=== PATIENT | female | born 1955 | race Caucasian/White ===

== ENCOUNTER 2018-05-28 07:31 | Day surgery (SDC) | payer OTHER ==
[~2018-05-28] VITALS: Ht 152.4 cm; Wt 90.9 kg
[~2018-05-28 07:31] MED LIST: Flonase 0.05% N16 GM; IBUP800 PO; LEVSOD88; Norco 7.5-3251 EACH PO; Omeprazole20 M1 PO; RANI150 PO; RXIBUP800 PO; VENL37.5ER PO
[2018-05-28] MEDS ORDERED: CYAN500 (08:06)
== END 2018-05-28 10:07 | disposition home or self-care (01) ==
LOC: ORSCSDS 07:31
PROVIDERS: Internal Medicine Gastroenterology
PROC: 0DBL8ZX Excision of Transverse Colon, Via Natural or Artificial Opening Endoscopic, Diagnostic (ICD-10-PCS; principal; 2018-05-28 08:45)
PROC: 0DBP8ZX Excision of Rectum, Via Natural or Artificial Opening Endoscopic, Diagnostic (ICD-10-PCS; principal; 2018-05-28 08:45)
PROC: 0DBN8ZX Excision of Sigmoid Colon, Via Natural or Artificial Opening Endoscopic, Diagnostic (ICD-10-PCS; principal; 2018-05-28 08:45)
DX: Z86.010 Personal history of colon polyps (principal); D12.3 Benign neoplasm of transverse colon; K63.5 Polyp of colon; K62.1 Rectal polyp; K57.30 Diverticulosis of large intestine without perforation or abscess without bleeding; K64.8 Other hemorrhoids; G47.33 Obstructive sleep apnea (adult) (pediatric); E03.9 Hypothyroidism, unspecified; Z87.891 Personal history of nicotine dependence
CPT/HCPCS: 88305; J7120

== ENCOUNTER 2019-05-24 04:18 | Emergency (ER) | payer OTHER ==
[~2019-05-24] VITALS: Ht 154.9 cm; Wt 80.7 kg
[~2019-05-24 04:18] MED LIST changes: +CYAN500
[2019-05-24] MEDS ORDERED: NORCO (04:36)
[2019-05-24] MEDS ORDERED: CEPH500 PO (04:48)
[2019-05-24] MEDS ORDERED: BENADRYL25 MG PO (04:48)
[2019-05-24] MEDS ORDERED: Bactrim Ds Tab1 EACH PO (04:48)
== END 2019-05-24 05:03 | disposition home or self-care (01) ==
LOC: ER 04:18
DX: S00.461A Insect bite (nonvenomous) of right ear, initial encounter (principal); H60.11 Cellulitis of right external ear; W57.XXXA Bitten or stung by nonvenomous insect and other nonvenomous arthropods, initial encounter; Z79.899 Other long term (current) drug therapy; Z87.891 Personal history of nicotine dependence
CPT/HCPCS: 99282; Q0163

== ENCOUNTER → 2019-11-10 | Outpatient (CLI) | payer OTHER ==
[~2019-11-10] MED LIST changes: +BENADRYL25 MG PO; +Bactrim Ds Tab1 EACH PO; +CEPH500 PO; +NORCO
[2019-11-10 18:22] LABS: U Amphetamine Screen Not Detected; U Barbituate Screen Not Detected; U Benzodiazapine Screen Not Detected; U Buprenorphine Screen Not Detected; U Cannabinoids Screen Not Detected; U Cocaine Screen Not Detected; U Methadone Screen Not Detected; U Methamphetamine Screen Not Detected; U Opiates Screen DETECTED; U Oxycodone Screen Not Detected; U Phencyclidine Screen Not Detected; U Propoxyphene Screen Not Detected
== END | disposition home or self-care (01) ==
LOC: LAB SHORT 15:01 → LAB 15:01
PROVIDERS: Internal Medicine
DX: Z51.81 Encounter for therapeutic drug level monitoring (principal); Z79.891 Long term (current) use of opiate analgesic
CPT/HCPCS: G0480

== ENCOUNTER 2020-12-04 07:47 | Day surgery (SDC) | payer BC ==
[~2020-12-04] VITALS: Ht 152.4 cm; Wt 71.0 kg
== END 2020-12-04 09:44 | disposition home or self-care (01) ==
LOC: ORSCSDS 07:47
PROVIDERS: Internal Medicine Gastroenterology
PROC: 0DB58ZX Excision of Esophagus, Via Natural or Artificial Opening Endoscopic, Diagnostic (ICD-10-PCS; principal; 2020-12-04 09:00)
DX: K22.70 Barrett's esophagus without dysplasia (principal); K21.9 Gastro-esophageal reflux disease without esophagitis; G47.30 Sleep apnea, unspecified; K76.0 Fatty (change of) liver, not elsewhere classified; Z79.899 Other long term (current) drug therapy
CPT/HCPCS: 88305; J2704; J7120

== ENCOUNTER 2022-03-11 06:29 | Day surgery (SDC) | payer MEDICARE ==
[~2022-03-11] VITALS: Ht 152.4 cm; Wt 75.5 kg
== END 2022-03-11 08:10 | disposition home or self-care (01) ==
LOC: ORSCSDS 06:29
PROVIDERS: Orthopaedic Surgery
PROC: 01N50ZZ Release Median Nerve, Open Approach (ICD-10-PCS; principal; 2022-03-11 07:30)
DX: G56.03 Carpal tunnel syndrome, bilateral upper limbs (principal); G47.33 Obstructive sleep apnea (adult) (pediatric); E66.9 Obesity, unspecified; Z68.32 Body mass index [BMI] 32.0-32.9, adult; Z87.891 Personal history of nicotine dependence; Z79.899 Other long term (current) drug therapy
CPT/HCPCS: J2250; J2704; J3010

== ENCOUNTER → 2023-08-07 | Outpatient (CLI) | payer MEDICARE ==
[2023-08-07 11:05] LABS: U Amphetamine Screen Not Detected; U Barbituate Screen Not Detected; U Benzodiazapine Screen Not Detected; U Buprenorphine Screen Not Detected; U Cannabinoids Screen Not Detected; U Cocaine Screen Not Detected; U Methadone Screen Not Detected; U Methamphetamine Screen Not Detected; U Opiates Screen DETECTED; U Oxycodone Screen Not Detected; U Phencyclidine Screen Not Detected; U Propoxyphene Screen Not Detected
== END | disposition home or self-care (01) ==
LOC: LAB SHORT 08:20 → LAB 08:20
PROVIDERS: Internal Medicine
DX: Z51.81 Encounter for therapeutic drug level monitoring (principal); Z79.891 Long term (current) use of opiate analgesic
CPT/HCPCS: G0480

== ENCOUNTER 2024-07-22 09:58 | Day surgery (SDC) | payer OTHER ==
[~2024-07-22] VITALS: Ht 152.4 cm; Wt 86.8 kg
[~2024-07-22 09:58] MED LIST changes: +FARXIGA5 MG PO; +FURO20 PO; +Lactated Ringer's 1,000 ML IV SCH; +NEBI10 PO
[2024-07-22 10:25] VITALS: BP 144/91
--- NOTE | 2024-07-22 10:43 | NUR ---
07/22/24 1043 Jennifer Samuel History, Chart, Medications and Allergies reviewed before start of procedure.
[2024-07-22] MEDS ORDERED: propofoL 60 ML IV ONE (10:45)
[2024-07-22] MEDS ORDERED: Lidocaine HCl 4% 5 ML SDA ONE (10:54)
[2024-07-22 11:46] VITALS: BP 113/87
--- NOTE | 2024-07-22 11:46 | NUR ---
PT TO DAY SURGERY STEP DOWN FROM EGD AND COLONOSCOPY, BEDSIDE REPORT RECEIVED. PT IS AWAKE, ALERT AND ORIENTED; ABLE TO MOVE SELF IN BED. VSS. PT DENIES PAIN AND HAS NO COMPLAINTS.
--- NOTE | 2024-07-22 11:58 | NUR ---
REPORT OFF TO MAURA Dela Cruz RN
[2024-07-22 12:00] VITALS: BP 137/76
--- NOTE | 2024-07-22 12:26 | NUR ---
Patient up to Ambulate independently. Gait steady. Discharge instructions reviewed with patient. Patient verbalizes understanding. Copy given to patient to take home. Discharged via wheelchair to private car for ride home.
== END 2024-07-22 12:25 | disposition home or self-care (01) ==
LOC: ORSCMMR 09:58 → ORD 11:15 → ORSCMMR 11:15
PROVIDERS: Internal Medicine Gastroenterology
PROC: 0DBN8ZX Excision of Sigmoid Colon, Via Natural or Artificial Opening Endoscopic, Diagnostic (ICD-10-PCS; principal; 2024-07-22 11:15)
PROC: 0DBC8ZX Excision of Ileocecal Valve, Via Natural or Artificial Opening Endoscopic, Diagnostic (ICD-10-PCS; principal; 2024-07-22 11:15)
PROC: 0DBH8ZX Excision of Cecum, Via Natural or Artificial Opening Endoscopic, Diagnostic (ICD-10-PCS; principal; 2024-07-22 11:15)
PROC: 0DB58ZX Excision of Esophagus, Via Natural or Artificial Opening Endoscopic, Diagnostic (ICD-10-PCS; principal; 2024-07-22 11:15)
PROC: 0DBL8ZX Excision of Transverse Colon, Via Natural or Artificial Opening Endoscopic, Diagnostic (ICD-10-PCS; principal; 2024-07-22 11:15)
PROC: 0DBM8ZX Excision of Descending Colon, Via Natural or Artificial Opening Endoscopic, Diagnostic (ICD-10-PCS; principal; 2024-07-22 11:15)
DX: Z12.11 Encounter for screening for malignant neoplasm of colon (principal); Z86.010 Personal history of colon polyps; R13.10 Dysphagia, unspecified; K22.70 Barrett's esophagus without dysplasia; D12.3 Benign neoplasm of transverse colon; D12.0 Benign neoplasm of cecum; D12.4 Benign neoplasm of descending colon; D12.5 Benign neoplasm of sigmoid colon; K63.5 Polyp of colon; K44.9 Diaphragmatic hernia without obstruction or gangrene; K64.8 Other hemorrhoids; G47.33 Obstructive sleep apnea (adult) (pediatric); E78.5 Hyperlipidemia, unspecified; E03.9 Hypothyroidism, unspecified; K21.9 Gastro-esophageal reflux disease without esophagitis; Z79.899 Other long term (current) drug therapy; E66.01 Morbid (severe) obesity due to excess calories; Z68.37 Body mass index [BMI] 37.0-37.9, adult
CPT/HCPCS: 88305; J2001; J2704; J7120